=== PATIENT | female | born 1985 | race Caucasian/White ===

== ENCOUNTER 2016-09-16 22:52 | Emergency (ER) | payer MEDICAID, SELFPAY ==
[2016-09-16 23:20] LABS: Bilirubin Negative (Negative); Blood, Urine Negative (Negative); Glucose, Urine (Dipstick) Negative (Negative); Ketone, Urine Negative (Negative); Nitrite Negative (Negative); Protein, Urine (Dipstick) Negative (Neg-Trace); Urobilinogen 0.2 mg/dL (0.2-1.0)
== END 2016-09-16 23:33 | disposition home or self-care (01) ==
LOC: BURERS 22:52
DX: R53.1 Weakness (principal); I10 Essential (primary) hypertension; F31.9 Bipolar disorder, unspecified; Z87.891 Personal history of nicotine dependence
CPT/HCPCS: 81003; 81025; 99284

== ENCOUNTER 2016-12-03 21:41 | Emergency (ER) | payer MEDICAID, OTHER ==
[2016-12-03] MEDS ORDERED: Ketorolac Tromethamine 60 MG/2 ML VIAL ONE (22:31)
--- NOTE | 2016-12-03 23:03 | RAD ---
RADIOGRAPH LEFT FOOT THREE VIEWS: HISTORY: A 31-year-old female, status post blunt trauma to the foot. FINDINGS: There is no fracture, dislocation, or any other osseous abnormality. The joints are normal. IMPRESSION: Negative. POS: [facility]
== END 2016-12-03 22:36 | disposition home or self-care (01) ==
LOC: BURERS 21:41
DX: S93.602A Unspecified sprain of left foot, initial encounter (principal); I10 Essential (primary) hypertension; F31.9 Bipolar disorder, unspecified; F43.10 Post-traumatic stress disorder, unspecified; Z87.891 Personal history of nicotine dependence; W51.XXXA Accidental striking against or bumped into by another person, initial encounter
CPT/HCPCS: 96372; J1885

== ENCOUNTER 2017-04-22 20:31 | Emergency (ER) | payer OTHER, SELFPAY ==
[2017-04-22 21:35] LABS: Bilirubin Negative (Negative); Blood, Urine Negative (Negative); Clarity Clear (Clear); Glucose, Urine (Dipstick) Negative (Negative); Leukocyte Trace (Negative); Nitrite Negative (Negative); Protein, Urine (Dipstick) Negative (Neg-Trace); Urobilinogen 0.2 mg/dL (0.2-1.0)
[2017-04-22 21:36] LABS: Pregnancy Test - Urine (BHCG) Negative (Negative); Pregu Control Background? CLEAR/WHITE (CLR/WHITE); Pregu Control Bar Appear? YES (CONTROL BAR); Specific Gravity 1.004 (1.002-1.036)
[2017-04-22 21:37] LABS: Specific Gravity, Urine 1.004 (1.002-1.036)
[2017-04-22 21:40] LABS: Hemoglobin 13.8 g/dL (12.0-16.0); Mean Corpuscular HGB CONC 33.8 g/dL (32.0-36.0); Mean Corpuscular Hemoglobin 33.3 pg (27.0-31.0); Mean Corpuscular Volume 98.5 fl (81.0-99.0); Mean Platelet Volume 9.8 fL (7.4-10.4); Platelet Count 246 thou/uL (130-400); RBC Distribution Width 12.2 % (11.5-14.5); Red Blood Cell (RBC) Count 4.15 mill/uL (4.20-5.40)
[2017-04-22 21:44] LABS: Bacteria/HPF 1+ HPF (None Seen); RBC/HPF 0-3 HPF (0-3); Squamous Epithelial 0-3 HPF (0-3)
[2017-04-22 21:44] LABS: ALT (SGPT) 35 U/L (8-55); AST (SGOT) 34 U/L (5-34); Albumin 4.1 g/dL (3.5-5.0); Alcohol 304 mg/dL (Less than 10); Alkaline Phosphatase 96 U/L (40-150); Anion Gap 17 mmol/L (10-20); BUN (Urea Nitrogen) 7 mg/dL (7.0-18.7); Bilirubin, Total 0.3 mg/dL (0.2-1.2); Calc. Creatinine Clearance 0 mL/min (70-130); Calcium 8.9 mg/dL (7.8-10.44); Carbon Dioxide 20 mmol/L (22-29); Chloride 102 mmol/L (98-107); Estimated GFR-MDRD 87; Globulin 2.9 g/dL (2.4-3.5); Glucose 90 mg/dL (70-105); Potassium 3.5 mmol/L (3.5-5.1); Sodium 135 mmol/L (136-145)
[2017-04-22 21:48] LABS: Amphetamine Not Detected (NotDetected); Barbiturates Screen Not Detected (NotDetected); Benzodiazepine Screen Not Detected (NotDetected); Cocaine Metabolite Screen Not Detected (NotDetected); Medtox Control Line Valid? VALID (VALID); Methadone Not Detected (NotDetected); Methamphetamine Not Detected (NotDetected); Opiate Screen Not Detected (NotDetected); Oxycodone Screen Not Detected (NotDetected); Phencyclidine (PCP) Not Detected (NotDetected); THC/Cannabinoid Screen Not Detected (NotDetected); Tricyclic Screen Not Detected (NotDetected)
[2017-04-22 22:03] LABS: Eosinophils 2 % (0-10); Lymphocytes 27 % (21-51); MDiff Complete? YES; Monocytes 5 % (0-10); Neutrophil 64 % (42-75); PLT Morphology Comment Appears Adequate; RBC Morphology Normal; Reactive Lymphocytes 2 % (0-10)
[2017-04-22] MEDS ORDERED: Ketorolac Tromethamine 30 MG/ML VIAL ONE (22:12)
== END 2017-04-22 22:28 | disposition home or self-care (01) ==
LOC: BURERS 20:31
DX: F10.129 Alcohol abuse with intoxication, unspecified (principal); E78.2 Mixed hyperlipidemia; E78.5 Hyperlipidemia, unspecified; I10 Essential (primary) hypertension; F43.10 Post-traumatic stress disorder, unspecified; F31.9 Bipolar disorder, unspecified; Z87.891 Personal history of nicotine dependence
CPT/HCPCS: 80053; 80306; 80307; 81003; 81015; 81025; 85025; 96374; J1885

== ENCOUNTER 2017-06-03 19:22 | Emergency (ER) | payer SELFPAY ==
[2017-06-03] MEDS ORDERED: Lorazepam 2 MG/ML VIAL ONE (19:28)
[2017-06-03] MEDS ORDERED: Haloperidol Lactate 5 MG/ML VIAL ONE (19:32)
[2017-06-03 20:09] LABS: #Basophils 0.1 thou/uL (0.0-0.2); #Eosinphils 0.2 thou/uL (0.0-0.7); #Lymphocytes 2.9 thou/uL (1.20-3.40); #Monocytes 0.4 thou/uL (0.11-0.59); %Eosinophils 2.1 % (0.0-10.0); %Monocytes 4.4 % (0.0-10.0); %Neutrophils 62.5 % (42.0-75.0); Hemoglobin 13.9 g/dL (12.0-16.0); Mean Corpuscular HGB CONC 33.7 g/dL (32.0-36.0); Mean Corpuscular Hemoglobin 33.4 pg (27.0-31.0); Mean Corpuscular Volume 99.1 fl (81.0-99.0); Mean Platelet Volume 7.9 fL (7.4-10.4); Platelet Count 224 thou/uL (130-400); RBC Distribution Width 11.4 % (11.5-14.5); Red Blood Cell (RBC) Count 4.15 mill/uL (4.20-5.40); White Blood Cell (WBC) Count 9.5 thou/uL (4.8-10.8)
[2017-06-03 20:21] LABS: ALT (SGPT) 33 U/L (8-55); AST (SGOT) 23 U/L (5-34); Albumin 3.9 g/dL (3.5-5.0); Alkaline Phosphatase 84 U/L (40-150); Anion Gap 17 mmol/L (10-20); BUN (Urea Nitrogen) 6 mg/dL (7.0-18.7); Bilirubin, Total 0.3 mg/dL (0.2-1.2); Calc. Creatinine Clearance 0 mL/min (70-130); Calcium 8.9 mg/dL (7.8-10.44); Carbon Dioxide 19 mmol/L (22-29); Chloride 101 mmol/L (98-107); Estimated GFR-MDRD Greater than 90; Globulin 2.8 g/dL (2.4-3.5); Glucose 85 mg/dL (70-105); Protein, Total 6.7 g/dL (6.0-8.3); Sodium 134 mmol/L (136-145)
[2017-06-03 20:24] LABS: BHCG - Serum Negative (NEGATIVE); Potassium 2.9 mmol/L (3.5-5.1); Pregs Control Background? CLEAR/WHITE (CLR/WHITE); Pregs Control Bar Appear? YES (CONTROL BAR)
[2017-06-03] MEDS ORDERED: Potassium Chloride 20 MEQ/100 ML PREMIX BAG ONE (20:28)
[2017-06-03] MEDS ORDERED: Potassium Chloride 20 MEQ TAB ONE ×2 (20:54)
== END 2017-06-03 21:55 | disposition home or self-care (01) ==
LOC: EDBD 19:22 → BURERS 19:22
DX: E86.0 Dehydration (principal); E78.5 Hyperlipidemia, unspecified; F31.9 Bipolar disorder, unspecified; F43.10 Post-traumatic stress disorder, unspecified; I10 Essential (primary) hypertension; Z87.891 Personal history of nicotine dependence; Z79.899 Other long term (current) drug therapy
CPT/HCPCS: 36415; 80053; 84703; 85025; 96361; 96374; 96375; J1630; J2060; J3480

== ENCOUNTER 2017-09-09 17:29 | Emergency (ER) | payer SELFPAY ==
[2017-09-09] MEDS ORDERED: diphenhydrAMINE 50 MG/ML VIAL ONE (17:56)
[2017-09-09] MEDS ORDERED: Metoclopramide HCl 10 MG/2 ML VIAL ONE (17:56)
[2017-09-09] MEDS ORDERED: Ketorolac Tromethamine 30 MG/ML VIAL ONE (17:56)
[2017-09-09 18:07] LABS: #Basophils 0.1 thou/uL (0.0-0.2); #Eosinphils 0.1 thou/uL (0.0-0.7); #Lymphocytes 3.7 thou/uL (1.20-3.40); #Monocytes 0.7 thou/uL (0.11-0.59); #Neutrophils 8.6 thou/uL (1.40-6.50); %Eosinophils 0.8 % (0.0-10.0); %Lymphocytes 28.1 % (21.0-51.0); %Monocytes 5.1 % (0.0-10.0); Hemoglobin 14.6 g/dL (12.0-16.0); Mean Corpuscular HGB CONC 35.5 g/dL (32.0-36.0); Mean Corpuscular Hemoglobin 33.1 pg (27.0-31.0); Mean Corpuscular Volume 93.2 fl (81.0-99.0); Mean Platelet Volume 8.4 fL (7.4-10.4); Platelet Count 277 thou/uL (130-400); RBC Distribution Width 11.3 % (11.5-14.5); Red Blood Cell (RBC) Count 4.41 mill/uL (4.20-5.40); White Blood Cell (WBC) Count 13.3 thou/uL (4.8-10.8)
[2017-09-09 18:13] LABS: ALT (SGPT) 30 U/L (8-55); AST (SGOT) 43 U/L (5-34); Alkaline Phosphatase 127 U/L (40-150); Anion Gap 16 mmol/L (10-20); BUN (Urea Nitrogen) 8 mg/dL (7.0-18.7); Bilirubin, Total 0.6 mg/dL (0.2-1.2); Calc. Creatinine Clearance 0 mL/min (70-130); Calcium 9.2 mg/dL (7.8-10.44); Carbon Dioxide 20 mmol/L (22-29); Chloride 102 mmol/L (98-107); Estimated GFR-MDRD Greater than 90; Globulin 3.4 g/dL (2.4-3.5); Glucose 96 mg/dL (70-105); Potassium 3.6 mmol/L (3.5-5.1); Protein, Total 7.4 g/dL (6.0-8.3); Sodium 134 mmol/L (136-145)
== END 2017-09-09 18:28 | disposition home or self-care (01) ==
LOC: BURERS 17:29
DX: F10.10 Alcohol abuse, uncomplicated (principal); R51 Headache; I10 Essential (primary) hypertension; F17.210 Nicotine dependence, cigarettes, uncomplicated; F31.9 Bipolar disorder, unspecified; Z79.899 Other long term (current) drug therapy
CPT/HCPCS: 80053; 80307; 82274; 85025; 96374; 96375; J1200; J1885; J2765

== ENCOUNTER 2017-09-29 21:38 | Emergency (ER) | payer SELFPAY ==
[2017-09-29 22:09] LABS: pH (venous) 7.42 (7.35-7.45)
[2017-09-29] MEDS ORDERED: diphenhydrAMINE 50 MG/ML VIAL ONE (22:09)
[2017-09-29] MEDS ORDERED: Metoclopramide HCl 10 MG/2 ML VIAL ONE (22:09)
[2017-09-29 22:12] LABS: Hemoglobin (Hb) 13.6 g/dL (11.7-15.5)
[2017-09-29 22:14] LABS: BHCG - Serum Negative (NEGATIVE); Pregs Control Background? CLEAR/WHITE (CLR/WHITE); Pregs Control Bar Appear? YES (CONTROL BAR)
[2017-09-29 22:22] LABS: Acetaminophen Less than 6.0 mcg/mL (10.0-30.0); Alcohol 296 mg/dL (Less than 10); Anion Gap 18 mmol/L (10-20); BUN (Urea Nitrogen) 7 mg/dL (7.0-18.7); Calc. Creatinine Clearance 0 mL/min (70-130); Calcium 8.9 mg/dL (7.8-10.44); Carbon Dioxide 18 mmol/L (22-29); Chloride 102 mmol/L (98-107); Estimated GFR-MDRD Greater than 90; Glucose 90 mg/dL (70-105); Potassium 3.3 mmol/L (3.5-5.1); Salicylate Less than 8.0 mg/dL (15.0-30.0); Sodium 135 mmol/L (136-145)
== END 2017-09-29 23:08 | disposition home or self-care (01) ==
LOC: BURERS 21:38
DX: G43.909 Migraine, unspecified, not intractable, without status migrainosus (principal); I10 Essential (primary) hypertension; F31.9 Bipolar disorder, unspecified; F17.210 Nicotine dependence, cigarettes, uncomplicated
CPT/HCPCS: 80048; 80307; 82805; 84703; 96361; 96374; 96375; J1200; J2765

== ENCOUNTER 2017-10-14 23:21 | Emergency (ER) | payer SELFPAY | END 2017-10-15 00:12 | disposition home or self-care (01) | LOC: BURERS 23:21 | DX: G43.909 Migraine, unspecified, not intractable, without status migrainosus (principal); F10.129 Alcohol abuse with intoxication, unspecified; R16.1 Splenomegaly, not elsewhere classified; I10 Essential (primary) hypertension; F31.9 Bipolar disorder, unspecified; F17.210 Nicotine dependence, cigarettes, uncomplicated | CPT/HCPCS: 99283 ==

== ENCOUNTER 2017-11-28 21:27 | Emergency (ER) | payer SELFPAY ==
[2017-11-28 22:05] LABS: Clarity Clear (Clear)
[2017-11-28 22:07] LABS: Specific Gravity, Urine 1.003 (1.005-1.030)
[2017-11-28 22:08] LABS: Bilirubin Negative (Negative); Blood, Urine Trace (Negative); Glucose, Urine (Dipstick) Negative (Negative); Leukocyte Trace (Negative); Nitrite Negative (Negative); Protein, Urine (Dipstick) Negative (Neg-Trace); Urobilinogen 0.2 mg/dL (0.2-1.0); pH, Urine 5.5 (5.0-9.0)
[2017-11-28 22:09] LABS: Bacteria/HPF 1+ HPF (None Seen); RBC/HPF 0-3 HPF (0-3); Squamous Epithelial 0-3 HPF (0-3)
[2017-11-28 22:11] LABS: #Basophils 0.2 thou/uL (0.0-0.2); #Eosinphils 0.3 thou/uL (0.0-0.7); #Lymphocytes 3.9 thou/uL (1.20-3.40); #Monocytes 0.5 thou/uL (0.11-0.59); #Neutrophils 5.3 thou/uL (1.40-6.50); %Basophils 1.7 % (0.0-1.0); %Eosinophils 2.6 % (0.0-10.0); %Lymphocytes 38.4 % (21.0-51.0); %Monocytes 4.5 % (0.0-10.0); %Neutrophils 52.8 % (42.0-75.0); Hemoglobin 13.5 g/dL (12.0-16.0); Mean Corpuscular HGB CONC 35.7 g/dL (32.0-36.0); Mean Corpuscular Hemoglobin 31.9 pg (27.0-31.0); Mean Corpuscular Volume 89.4 fl (81.0-99.0); Mean Platelet Volume 8.2 fL (7.4-10.4); Platelet Count 258 thou/uL (130-400); RBC Distribution Width 11.7 % (11.5-14.5); Red Blood Cell (RBC) Count 4.22 mill/uL (4.20-5.40); White Blood Cell (WBC) Count 10.1 thou/uL (4.8-10.8)
[2017-11-28 22:13] LABS: Amphetamine Not Detected (NotDetected); Barbiturates Screen Detected (NotDetected); Benzodiazepine Screen Not Detected (NotDetected); Cocaine Metabolite Screen Not Detected (NotDetected); Methamphetamine Not Detected (NotDetected); Opiate Screen Not Detected (NotDetected); Phencyclidine (PCP) Not Detected (NotDetected); THC/Cannabinoid Screen Not Detected (NotDetected)
[2017-11-28 22:14] LABS: Medtox Control Line Valid? VALID (VALID); Methadone Not Detected (NotDetected); Oxycodone Screen Not Detected (NotDetected); Tricyclic Screen Not Detected (NotDetected)
[2017-11-28 22:25] LABS: ALT (SGPT) 36 U/L (8-55); AST (SGOT) 52 U/L (5-34); Alcohol 254 mg/dL (Less than 10); Alkaline Phosphatase 106 U/L (40-150); Anion Gap 16 mmol/L (10-20); BUN (Urea Nitrogen) 5 mg/dL (7.0-18.7); Bilirubin, Total 0.3 mg/dL (0.2-1.2); Calc. Creatinine Clearance 0 mL/min (70-130); Calcium 8.7 mg/dL (7.8-10.44); Carbon Dioxide 18 mmol/L (22-29); Chloride 103 mmol/L (98-107); Estimated GFR-MDRD Greater than 90; Globulin 2.9 g/dL (2.4-3.5); Glucose 90 mg/dL (70-105); Potassium 3.4 mmol/L (3.5-5.1); Protein, Total 6.9 g/dL (6.0-8.3); Sodium 134 mmol/L (136-145)
[2017-11-28] MEDS ORDERED: Azithromycin 250 MG TAB ONE (23:23)
== END 2017-11-28 23:25 | disposition home or self-care (01) ==
LOC: BURERS 21:27
DX: J01.90 Acute sinusitis, unspecified (principal); F10.10 Alcohol abuse, uncomplicated; I10 Essential (primary) hypertension; G43.909 Migraine, unspecified, not intractable, without status migrainosus; F31.9 Bipolar disorder, unspecified; F17.210 Nicotine dependence, cigarettes, uncomplicated; Z79.899 Other long term (current) drug therapy; Y90.8 Blood alcohol level of 240 mg/100 ml or more
CPT/HCPCS: 36415; 80053; 80306; 80307; 81003; 81015; 85025; 99284

== ENCOUNTER → 2018-02-03 | Emergency (ER) | payer SELFPAY ==
[~2018-02-03] MED LIST: Acetaminophen 500 MG TAB ONE; Adacel (T-DAP) 0.5 ML VIAL ONE; Bacitracin Zinc 1 Packet ONE
--- NOTE | 2018-02-03 20:12 | RAD ---
RIGHT HAND THREE VIEWS: 02/03/18 No fracture or carpal abnormality was seen. The joints appear normal. IMPRESSION: No acute findings. POS: HOME
== END ==
LOC: BURERS 18:14
DX: S60.417A Abrasion of left little finger, initial encounter (principal); I10 Essential (primary) hypertension; G43.909 Migraine, unspecified, not intractable, without status migrainosus; F17.210 Nicotine dependence, cigarettes, uncomplicated; F31.9 Bipolar disorder, unspecified; W22.8XXA Striking against or struck by other objects, initial encounter
CPT/HCPCS: 90471; 90715

== ENCOUNTER 2018-03-26 21:30 | Emergency (ER) | payer SELFPAY ==
[2018-03-26] MEDS ORDERED: Oxymetazoline HCl 0.05% ( 15 ML ) ONE (21:37)
[2018-03-26] MEDS ORDERED: Sulfameth/Trimethoprim DS 800-160mg TAB ONE (22:09)
== END 2018-03-26 22:15 | disposition home or self-care (01) ==
LOC: BURERS 21:30
DX: R04.0 Epistaxis (principal); Z71.6 Tobacco abuse counseling; I10 Essential (primary) hypertension; G43.909 Migraine, unspecified, not intractable, without status migrainosus; F31.9 Bipolar disorder, unspecified; F17.210 Nicotine dependence, cigarettes, uncomplicated
CPT/HCPCS: 30901; 99406

== ENCOUNTER 2018-04-07 20:27 | Emergency (ER) | payer SELFPAY | END 2018-04-07 21:15 | disposition home or self-care (01) | LOC: BURERS 20:27 | DX: R05 Cough (principal); I10 Essential (primary) hypertension; G43.909 Migraine, unspecified, not intractable, without status migrainosus; F17.210 Nicotine dependence, cigarettes, uncomplicated; Z71.6 Tobacco abuse counseling | CPT/HCPCS: 94640; 99406 ==

== ENCOUNTER 2018-05-08 08:05 | Emergency (ER) | payer SELFPAY ==
[2018-05-08] MEDS ORDERED: Ondansetron PF 4 MG/2 ML Vial ONE (08:30)
[2018-05-08] MEDS ORDERED: Famotidine In NaCl 20 mg/50 ml Premix Bag ONE (08:30)
[2018-05-08] MEDS ORDERED: Fentanyl 100 MCG/2 ML VIAL ONE (08:51)
[2018-05-08 08:52] LABS: ALT (SGPT) 1228 U/L (8-55); Albumin 4.3 g/dL (3.5-5.0); Alkaline Phosphatase 253 U/L (40-150); Anion Gap 29 mmol/L (10-20); BUN (Urea Nitrogen) 7 mg/dL (7.0-18.7); Band 6 % (5-11); Bilirubin, Total 1.9 mg/dL (0.2-1.2); Calc. Creatinine Clearance 0 mL/min (70-130); Calcium 10.2 mg/dL (7.8-10.44); Carbon Dioxide 20 mmol/L (22-29); Chloride 92 mmol/L (98-107); Eosinophils 1 % (0-10); Estimated GFR-MDRD 66; Globulin 4.5 g/dL (2.4-3.5); Glucose 124 mg/dL (70-105); Hemoglobin 17.3 g/dL (12.0-16.0); Lipase 160 U/L (8-78); Lymphocytes 1 % (21-51); MDiff Complete? YES; Mean Corpuscular HGB CONC 33.2 g/dL (32.0-36.0); Mean Corpuscular Hemoglobin 30.2 pg (27.0-31.0); Mean Corpuscular Volume 90.9 fL (78.0-98.0); Mean Platelet Volume 11.4 fL (7.4-10.4); Neutrophil 92 % (42-75); PLT Morphology Comment Appears Adequate; Platelet Count 271 thou/uL (130-400); Protein, Total 8.8 g/dL (6.0-8.3); RBC Distribution Width 12.7 % (11.5-14.5); RBC Morphology Normal; Red Blood Cell (RBC) Count 5.72 mill/uL (4.20-5.40); Sodium 138 mmol/L (136-145); White Blood Cell (WBC) Count 16.8 thou/uL (4.8-10.8)
[2018-05-08 08:55] LABS: CKMB 0.5 ng/mL (0-6.6); Troponin I Less than 0.010 ng/mL (< 0.028)
[2018-05-08 09:00] LABS: Potassium 2.9 mmol/L (3.5-5.1)
[2018-05-08 09:29] LABS: AST (SGOT) 10738 U/L (5-34)
[2018-05-08] MEDS ORDERED: Lorazepam 2 MG/ML VIAL ONE (09:36)
[2018-05-08] MEDS ORDERED: Thiamine HCl 200 MG/2 ML VIAL ONE (09:52)
[2018-05-08] MEDS ORDERED: Multivit, Adult Inj 10 ML VIAL ONE (09:52)
--- NOTE | 2018-05-08 13:31 | RAD ---
PORTABLE CHEST: 05/08/2018 0820 HOURS COMPARISON: 12/06/2015 FINDINGS: This portable film shows a normal sized heart and clear lungs. No infiltrate or effusion is seen. T he mediastinum appears normal, and the trachea is midline. IMPRESSION: No acute thoracic finding. POS: HOME
--- NOTE | 2018-05-08 13:36 | CT ---
CT ABDOMEN AND PELVIS WITH CONTRAST: Date: 05-08-18 Technique: Axial slices were acquired and then sagittal and coronal reconstructions were done. FINDINGS: The lung bases are clear. There are no effusions. The liver is a little generous in size but is mostl y remarkable for diffuse fatty infiltration. No dilated ducts or focal hepatic changes were seen. The spleen is normal in size. There is a small amount of streaking around the pancreas, particularly around the pancreatic head whi ch seems a little more prominent than usual. There is probably a small fluid collecting just anterior to the pancreatic head. The gallbladder is large, being over 11 cm in length. No stones or wall thic kening were seen in association with it. The kidneys showed no mass or hydronephrosis. The adrenal gl ands and aorta were unremarkable. Multiple fluid filled loops of small bowel are present but there is no distention of bowel. No bowel wall thickening was appreciated. No free air or free fluid was present in the bulk of the abdomen oth er than the small area around the head of the pancreas. CT of the pelvis shows no pelvic adnexal masses, significant free fluid, or other acute findings. The bony structures showed no acute change. IMPRESSION: 1. Diffuse fatty infiltration of the liver. Hepatic size is probably slightly increased, but splenic size is normal. 2. Streaking around the pancreas with slight enlargement of the pancreatic head. A small amount of fl uid near the head, suspicious for acute pancreatitis. 3. Fluid in nondilated loops of small bowel, probably reactive to the above problems. 4. Large gallbladder without evidence of stones or wall thickening. Discussed with Dr. Alonzo at 0948 on 05-08-18. POS: HOME
[2018-05-08 18:05] LABS: HBCM Index 0.06 S/CO (0-0.79); HBSAg Index 0.22 S/CO (0-0.99); Hep A IgM AB Non-Reactive (NonReactive); Hep A IgM S/CO 0.13 S/CO (0-0.79); Hep B Surf Ag Non-Reactive S/CO (NonReactive); Hep C IgG Ab Non-Reactive (NonReactive); Hep C Index 0.07 S/CO (0-0.79); Hepatitis B Core IGM Abs Non-Reactive (NonReactive)
== END 2018-05-08 10:26 | disposition short-term general hospital (02) ==
LOC: BURERS 08:05
DX: B17.9 Acute viral hepatitis, unspecified (principal); E87.6 Hypokalemia; E86.0 Dehydration; F31.9 Bipolar disorder, unspecified; F17.210 Nicotine dependence, cigarettes, uncomplicated; I10 Essential (primary) hypertension; G43.909 Migraine, unspecified, not intractable, without status migrainosus
CPT/HCPCS: 36415; 71045; 74177; 80053; 80074; 82553; 83605; 83690; 84484; 85025; 87040; 93005; 94760; 96361; 96365; 96367; 96368; 96372; 96375; J1956; J2060; J2405; J3010; J3411

== ENCOUNTER → 2019-12-16 | Emergency (ER) | payer OTHER, SELFPAY ==
[~2019-12-16] MED LIST changes: -Acetaminophen 500 MG TAB ONE; -Adacel (T-DAP) 0.5 ML VIAL ONE; -Bacitracin Zinc 1 Packet ONE; +Fentanyl 100 MCG/2 ML VIAL ONE; +Iopamidol 370 76% 100 ML VIAL ONE; +Morphine 4 MG/ML VIAL ONE; +Ondansetron PF 4 MG/2 ML Vial ONE; +Sodium Chloride 0.9% 100 ML ONE; +cefTRIAXone\\ROCEPHIN 2 GM VIAL ONE; +metroNIDAZOLE 500 MG/100 ML BAG ONE
[2019-12-16 16:30] LABS: #Basophils 0.1 thou/uL (0.0-0.2); #Lymphocytes 2.3 thou/uL (1.20-3.40); #Monocytes 0.4 thou/uL (0.11-0.59); #Neutrophils 7.2 thou/uL (1.40-6.50); %Basophils 0.9 % (0.0-1.0); %Eosinophils 0.4 % (0.0-10.0); %Lymphocytes 23.4 % (21.0-51.0); %Neutrophils 71.4 % (42.0-75.0); BHCG - Serum Negative (NEGATIVE); Hemoglobin 14.4 g/dL (12.0-16.0); MDiff Complete? YES; Macrocytosis SLIGHT = 6-15 cells (100X) (0-5/hpf); Mean Corpuscular HGB CONC 34.1 g/dL (32.0-36.0); Mean Corpuscular Hemoglobin 34.6 pg (27.0-31.0); Mean Platelet Volume 9.2 fL (7.4-10.4); Platelet Count 185 thou/uL (130-400); RBC Distribution Width 13.4 % (11.5-14.5); Red Blood Cell (RBC) Count 4.16 mill/uL (4.20-5.40)
[2019-12-16 16:31] LABS: Pregs Control Background? CLEAR/WHITE (CLR/WHITE); Pregs Control Bar Appear? YES (CONTROL BAR)
[2019-12-16 16:41] LABS: Albumin 3.5 g/dL (3.5-5.0); Alkaline Phosphatase 155 U/L (40-110); Anion Gap 27 mmol/L (10-20); BUN (Urea Nitrogen) 5 mg/dL (7.0-18.7); Calc. Creatinine Clearance 0 mL/min (70-130); Calcium 9.2 mg/dL (7.8-10.44); Carbon Dioxide 10 mmol/L (22-29); Chloride 93 mmol/L (98-107); Estimated GFR-MDRD Greater than 90; Globulin 5.5 g/dL (2.4-3.5); Glucose 93 mg/dL (70-105); Sodium 127 mmol/L (136-145)
[2019-12-16 16:59] LABS: Lipase 78 U/L (8-78)
[2019-12-16 17:07] LABS: ALT (SGPT) 104 U/L (8-55)
[2019-12-16 17:14] LABS: AST (SGOT) 225 U/L (5-34)
[2019-12-16 17:15] LABS: CK (CPK) Less than 90 U/L (29-168)
[2019-12-16 17:46] LABS: Bilirubin Negative (Negative); Blood, Urine Trace (Negative); Glucose, Urine (Dipstick) Negative (Negative); Leukocyte Small (Negative); Nitrite Negative (Negative); Protein, Urine (Dipstick) Negative (Neg-Trace); Urobilinogen 0.2 mg/dL (Less than 2)
[2019-12-16 17:47] LABS: INR-International Normal Ratio 0.9; Prothrombin Time 12.4 sec (12.0-14.7)
[2019-12-16 17:49] LABS: Clarity Hazy (Clear)
[2019-12-16 17:51] LABS: RBC/HPF 0-3 HPF (0-3); Squamous Epithelial 0-3 HPF (0-3)
[2019-12-16 17:52] LABS: Bacteria/HPF 2+ HPF (None Seen)
--- NOTE | 2019-12-16 18:35 | RAD ---
PORTABLE CHEST: 12/16/19 An AP portable film at 1712 is compared with a 05/08/18 study. The heart is normal in size and the lungs are clear. No acute infiltrate or effusion was seen. The me diastinum appears normal. IMPRESSION: No acute thoracic finding. POS: HOME
--- NOTE | 2019-12-16 19:29 | CT ---
CT ABDOMEN AND PELVIS WITH CONTRAST: Date: 12-16-2019 Comparison: 05-08-18 FINDINGS: The lung bases are clear. The liver is mildly enlarged and shows diffuse fatty infiltration. This masoud earance has changed little over time. The pancreas and spleen were unremarkable today. There was no e vidence of pancreatitis. The gallbladder is large, measuring 10 cm in length. It does not have any ob vious calcified stones or wall thickening and it was actually even a bit larger than this in 2018. Th e kidneys and adrenal glands appear normal, as does the abdominal aorta. There are some fluid filled loops of small bowel which are nondistended and not thickened. There is n o evidence of obstruction, free air, or free fluid. CT of the pelvis shows distension of the urinary bladder. No adnexal masses or free fluid was seen. T here are no inflammatory changes here. IMPRESSION: Mild hepatomegaly with diffuse fatty infiltration. Large gallbladder, but not unlike the prior study. Findings discussed with Dr. Dominique at 1719 on 12-16-2019. POS: HOME
== END ==
LOC: BURERS 15:39
DX: K75.9 Inflammatory liver disease, unspecified (principal); E87.6 Hypokalemia; E87.1 Hypo-osmolality and hyponatremia; E87.2 Acidosis; I10 Essential (primary) hypertension; G43.909 Migraine, unspecified, not intractable, without status migrainosus; F31.9 Bipolar disorder, unspecified; F17.210 Nicotine dependence, cigarettes, uncomplicated; Z20.828 Contact with and (suspected) exposure to other viral communicable diseases
CPT/HCPCS: 71045; 74177; 80053; 80307; 81003; 81015; 82550; 83605; 83690; 83735; 84484; 84703; 85025; 85610; 87040; 87077; 87086; 87186; 93005; 96361; 96365; 96375; J0696; J2270; J2405; J3010; J3490; Q9967

== ENCOUNTER 2021-02-02 22:39 | Emergency (ER) | payer MEDICAID, SELFPAY ==
[2021-02-02] MEDS ORDERED: Morphine 4 MG/ML VIAL ONE (23:00)
[2021-02-02] MEDS ORDERED: Ondansetron PF 4 MG/2 ML Vial ONE (23:01)
[2021-02-02 23:22] LABS: #Basophils 0.2 thou/uL (0.0-0.2); #Eosinphils 0.3 thou/uL (0.0-0.7); #Lymphocytes 4.2 thou/uL (1.20-3.40); #Monocytes 0.6 thou/uL (0.11-0.59); #Neutrophils 7.9 thou/uL (1.40-6.50); %Basophils 1.4 % (0.0-1.0); %Lymphocytes 32.1 % (21.0-51.0); %Monocytes 4.7 % (0.0-10.0); %Neutrophils 59.9 % (42.0-75.0); Hemoglobin 14.8 g/dL (12.0-16.0); Mean Corpuscular HGB CONC 33.3 g/dL (32.0-36.0); Mean Corpuscular Hemoglobin 32.1 pg (27.0-31.0); Mean Corpuscular Volume 96.2 fL (78.0-98.0); Mean Platelet Volume 8.9 fL (7.4-10.4); Platelet Count 298 thou/uL (130-400); RBC Distribution Width 12.4 % (11.5-14.5); Red Blood Cell (RBC) Count 4.62 mill/uL (4.20-5.40); White Blood Cell (WBC) Count 13.2 thou/uL (4.8-10.8)
[2021-02-02 23:36] LABS: ALT (SGPT) 31 U/L (8-55); AST (SGOT) 28 U/L (5-34); Albumin 4.1 g/dL (3.5-5.0); Alkaline Phosphatase 105 U/L (40-110); Anion Gap 16 mmol/L (10-20); BUN (Urea Nitrogen) 5 mg/dL (7.0-18.7); Bilirubin, Total 0.3 mg/dL (0.2-1.2); Calc. Creatinine Clearance 0 mL/min (70-130); Calcium 8.8 mg/dL (7.8-10.44); Carbon Dioxide 25 mmol/L (22-29); Chloride 97 mmol/L (98-107); Globulin 2.9 g/dL (2.4-3.5); Glucose 87 mg/dL (70-105); Lipase 63 U/L (8-78); Sodium 135 mmol/L (136-145)
== END 2021-02-03 00:49 | disposition home or self-care (01) ==
LOC: BURERS 22:39
DX: R10.10 Upper abdominal pain, unspecified (principal); R10.816 Epigastric abdominal tenderness; R11.2 Nausea with vomiting, unspecified; R19.7 Diarrhea, unspecified; G43.909 Migraine, unspecified, not intractable, without status migrainosus; F17.210 Nicotine dependence, cigarettes, uncomplicated; Z87.19 Personal history of other diseases of the digestive system
CPT/HCPCS: 80053; 83690; 85025; 96374; 96375; J2270; J2405

== ENCOUNTER 2025-02-01 23:09 | Emergency (ER) | payer OTHER, SELFPAY ==
[2025-02-01] MEDS ORDERED: Lidocaine 1%/Epinephrine 1:100K 10 ML VIAL ONE (23:26)
[2025-02-01 23:37] LABS: #Basophils 0.1 thou/uL (0.0-0.2); #Eosinophils 0.3 thou/uL (0.0-0.7); #Lymphocytes 5.1 thou/uL (1.20-3.40); #Monocytes 0.6 thou/uL (0.11-0.59); #Neutrophils 6.8 thou/uL (1.40-6.50); %Basophils 0.8 % (0.0-1.0); %Eosinophils 2.7 % (0.0-10.0); %Lymphocytes 39.5 % (21.0-51.0); %Monocytes 5.0 % (0.0-10.0); %Neutrophils 52.1 % (42.0-75.0); Hematocrit 39.6 % (36.0-47.0); Hemoglobin 13.8 g/dL (12.0-16.0); Mean Corpuscular Hemoglobin 29.8 pg (27.0-31.0); Mean Corpuscular Volume 85.7 fl (78.0-98.0); Platelet Count 381 10x3/uL (130-400); Red Blood Cell (RBC) Count 4.62 mill/uL (4.20-5.40); White Blood Cell (WBC) Count 13.0 10x3/uL (4.8-10.8)
[2025-02-01] MEDS ORDERED: Boostrix 0.5 ML (Tdap) VIAL (>/=7 yrs of age) ONE (23:47)
[2025-02-01 23:54] LABS: ALT (SGPT) 21 U/L (Less than 34); AST (SGOT) 38 U/L (11-34); Albumin 4.2 g/dL (3.1-4.5); Alkaline Phosphatase 93 U/L (40-110); Anion Gap 18 mmol/L (10-20); BUN (Urea Nitrogen) 5 mg/dL (7.0-18.7); Bilirubin, Total 0.4 mg/dL (0.3-1.2); Calc. Creatinine Clearance 0 mL/min (70-130); Calcium 8.7 mg/dL (7.8-10.44); Carbon Dioxide 15 mmol/L (22-29); Chloride 98 mmol/L (98-107); Globulin 3.2 g/dL (2.4-3.5); Glucose 97 mg/dL (70-105); Potassium 3.3 mmol/L (3.5-5.1); Sodium 128 mmol/L (136-145)
[2025-02-02 00:46] LABS: Acetaminophen Less than 10 mcg/mL (Less than 10); Salicylate Less than 8.0 mg/dL (Less than 8.0)
== END 2025-02-02 01:30 ==
LOC: BURERS 23:09
DX: S51.812A Laceration without foreign body of left forearm, initial encounter (principal); S50.811A Abrasion of right forearm, initial encounter; F10.129 Alcohol abuse with intoxication, unspecified; F17.290 Nicotine dependence, other tobacco product, uncomplicated; Z23 Encounter for immunization; X78.8XXA Intentional self-harm by other sharp object, initial encounter; Y93.9 Activity, unspecified
CPT/HCPCS: 12002; 36415; 80053; 80307; 85025; 90471; 90715